=== PATIENT | female | born 1990 | race Caucasian/White ===

== ENCOUNTER → 2017-08-28 12:12 | Outpatient (CLI) | payer MEDICARE, MEDICAID, SELFPAY ==
[2017-08-28 12:17] LABS: Adenovirus F 40/41, stool Not Detected (NotDetected); Astrovirus Not Detected (NotDetected); Campylobacter Not Detected (NotDetected); Clostridium Difficile A/B, PCR Not Detected (NotDetected); Cryptosporidium Not Detected (NotDetected); Cyclospora Cayetanesis Not Detected (NotDetected); Entamoeba histolytica Not Detected (NotDetected); Enteroaggregative E coli Not Detected (NotDetected); Enteropathogenic E coli Not Detected (NotDetected); Enterotoxigenic E coli Not Detected (NotDetected); Giardia lamblia Not Detected (NotDetected); Norovirus Not Detected (NotDetected); Plesimonas Shigalloides, PCR Not Detected (NotDetected); Rotavirus A Not Detected (NotDetected); Salmonella, PCR Not Detected (NotDetected); Sapovirus Not Detected (NotDetected); Shiga-like toxin E coli Not Detected (NotDetected); Shigella Enterovasive E coli Not Detected (NotDetected); Vibrio Cholerae Not Detected (NotDetected); Vibrio, PCR Not Detected (NotDetected); Yersinia Entercolitica, PCR Not Detected (NotDetected)
== END ==
PROVIDERS: Visit Provider Emergency Medicine
DX: R11.2 Nausea with vomiting, unspecified (principal)
CPT/HCPCS: 87507

== ENCOUNTER → 2019-10-31 08:22 | Outpatient (CLI) | payer MEDICARE, MEDICAID, SELFPAY ==
[2019-10-31 08:59] LABS: Basophils # 0.1 K/mm3 (0-0.2); Basophils % 0.7 % (0.1-2.0); Eosinophils # 0.3 K/mm3 (0.0-0.4); Eosinophils % 2.5 % (0.1-12.0); Hematocrit 41.3 % (37.0-47.0); Hemoglobin 14.4 g/dL (12.2-16.2); Lymphocytes % 28.4 % (10-50); Mean Corpuscular HGB Conc 34.8 g/dL (31.8-35.4); Mean Corpuscular Hemoglobin 29.4 pg (27.0-31.2); Mean Corpuscular Volume 84.4 fl (81-99); Mean Platelet Volume 6.5 fl (7.4-10.4); Monocytes # 0.5 K/mm3 (0.1-1.0); Neutrophils # 6.8 K/mm3 (1.8-7.8); Neutrophils % 63.4 % (37.0-80.0); Platelet Count 452 K/mm3 (142-424); Red Cell Distribution Width 13.5 % (11.5-17.5); White Blood Count 10.7 K/mm3 (4.8-10.8)
[2019-10-31 10:09] LABS: Alanine Aminotransferase 20 U/L (12-78); Albumin Level 4.1 g/dl (3.5-5.0); Albumin/Globulin Ratio 1.2 (1.1-1.8); Alkaline Phosphatase 108 U/L (38-126); Anion Gap 10.2 mEq/L (5-15); Aspartate Amino Transferase 18 U/L (14-36); Bilirubin,Total 0.6 mg/dl (0.2-1.3); Blood Urea Nitrogen 13 mg/dl (7-17); Calcium 9.4 mg/dl (8.4-10.2); Carbon Dioxide 27 mmol/L (22.0-30.0); Chloride 103 mmol/L (98-107); Chol/HDL Ratio 3.4 (1-3.5); Cholesterol 158 mg/dl (140-200); Estimated Glomerular Filt Rate 100 ml/min (>60); GFR (African American) 121 ML/MIN (>60); Globulin 3.4 g/dL (1.3-3.2); Glucose 96 mg/dl (74-100); HDL Cholesterol 46 mg/dl (40-60); Potassium 4.2 mmoL/L (3.5-5.1); Sodium 136 mmol/L (136-145); Total Protein,Serum 7.5 g/dl (6.3-8.2); Triglycerides 136 mg/dl (30-150); VLDL Cholesterol 27 mg/dL (0-40)
[2019-10-31 10:20] LABS: Direct LDL Cholesterol 102.57 mg/dL (100-129)
== END ==
PROVIDERS: Visit Provider Physician Assistant
DX: R11.0 Nausea (principal); E78.2 Mixed hyperlipidemia
CPT/HCPCS: 36415; 80053; 80061; 85025

== ENCOUNTER → 2020-10-13 15:39 | Outpatient (CLI) | payer MEDICARE, OTHER, SELFPAY ==
--- NOTE | 2020-10-13 15:48 | XR_ITS ---
PROCEDURE: XR ABDOMEN MIN 2V CLINICAL INDICATION: NAUSEA AND VOMITING COMPARISON: No exams were available for comparison FINDINGS: Status post cholecystectomy. Mild levo curvature of the lumbar spine. The bowel gas pattern is nonspecific. There is a surgical clip in the right lower quadrant. No intestinal obstruction or free air. No abnormal calcifications. IMPRESSION: No acute findings. Dictated by: Fermín Benjamin MD 10/13/2020 16:38 Fermín Benjamin MD in [facility] 10/13/2020 16:38
== END ==
PROVIDERS: PCP Family Medicine; Visit Provider Family Medicine
DX: R11.2 Nausea with vomiting, unspecified (principal)
CPT/HCPCS: 74019

== ENCOUNTER → 2020-10-16 08:49 | Outpatient (CLI) | payer MEDICARE, OTHER, SELFPAY ==
--- NOTE | 2020-10-16 08:56 | FL_ITS ---
PROCEDURE: FL UPPER GI SMALL BOWEL CLINICAL INDICATION: NAUSEA AND VOMITING, INTRACTABILITY OF VOMITING NOT SPECIFIE COMPARISON: No exams were available for comparison TECHNIQUE: FLUOROSCOPY TIME : 2 minutes and 39 seconds FINDINGS: The esophagus, stomach, and duodenum have an unremarkable appearance.There is no evidence of hiatal hernia. No ulcer or mass evident. No mucosal abnormalities apparent. There is normal peristalsis. The duodenal C-loop is nondisplaced. The small bowel has an unremarkable appearance. No obstructing lesions, mucosal abnormalities, or masses are evident. Spot views of the terminal ileum are unremarkable. IMPRESSION: Unremarkable upper GI with small-bowel follow-through Dictated by: Fermín Benjamin MD 10/16/2020 11:21 Fermín Benjamin MD in [facility] 10/16/2020 11:21
== END ==
PROVIDERS: PCP Family Medicine; Visit Provider Family Medicine
DX: R11.2 Nausea with vomiting, unspecified (principal)
CPT/HCPCS: 74246; 74248

== ENCOUNTER → 2021-01-03 11:48 | Outpatient (CLI) | payer MEDICARE, OTHER, SELFPAY | PROVIDERS: PCP Family Medicine; Visit Provider Family Medicine | DX: Z20.822 Contact with and (suspected) exposure to COVID-19 (principal) | CPT/HCPCS: U0003 ==

== ENCOUNTER 2021-01-05 20:29 | Emergency (ER) | payer MEDICARE, OTHER, SELFPAY ==
--- NOTE | 2021-01-05 21:39 | PC.NURSE ---
patient attempted to provide urine sample, mother states patient missed the hat
[2021-01-05 21:41] VITALS: BP 118/79; PULSE 86; RESP 15; TEMP 36.8; O2SAT 97; BMI 40.1
--- NOTE | 2021-01-05 22:30 | CT_ITS ---
PROCEDURE INFORMATION: Exam: CT Abdomen And Pelvis With Contrast Exam date and time: 01/05/2021 10:30 PM Age: 30 years old Clinical indication: Vomiting; Prior surgery; Surgery type: Gallbladder; Patient HX: N/v, unable to keep anything down, weight loss; Additional info: Abd pain TECHNIQUE: Imaging protocol: Computed tomography of the abdomen and pelvis with contrast. Radiation optimization: All CT scans at this facility use at least one of these dose optimization techniques: automated exposure control; mA and/or kV adjustment per patient size (includes targeted exams where dose is matched to clinical indication); or iterative reconstruction. Contrast material: ISOVUE; Contrast volume: 75 ml; Contrast route: IV; COMPARISON: ABDPELW CT abdomen pelvis w con 08/27/2017 2:21 PM FINDINGS: Lungs: There a few punctate pulmonary parenchymal calcifications, consistent with remote granulomatous organism exposure. Pleural spaces: There are no pleural effusions. Heart: There is no evidence of pericardial fluid collections. Liver: There is diffuse decrease in hepatic parenchymal density consistent with fatty infiltration. There is a small region of focal fatty infiltration adjacent to the falciform ligament. Gallbladder and bile ducts: There has been a cholecystectomy. Pancreas: Normal. No ductal dilation. Spleen: There is mild nonspecific splenomegaly. Adrenal glands: The adrenal glands are normal. Kidneys and ureters: The kidneys are normal. Stomach and bowel: The stomach is normal. The duodenum is unremarkable. Unopacified loops of small bowel within range of normal. Lack of gastrointestinal contrast limits evaluation of bowel. Evaluation of the colon is limited due to motion artifact. As seen, no gross abnormalities. Appendix: No evidence of appendicitis. Intraperitoneal space: No evidence of intraperitoneal free air. No significant free fluid. Vasculature: There is no evidence of an abdominal aortic aneurysm. Lymph nodes: Calcified lymph nodes in the left hilar region indicate prior granulomatous disease. Previously described lymph nodes in the central mesentery and right mid to lower abdomen are less prominent. Urinary bladder: The bladder is decompressed. Reproductive: The uterus is normal. The right ovary is normal. The left ovary is normal. Bones/joints: There is no evidence of acute fracture. There are mild degenerative changes of the sacroiliac joints. The thoracolumbar spine demonstrates mild degenerative changes at multiple levels. Soft tissues: Unremarkable. Other findings: Motion artifact does moderately limit the sensitivity of this examination. IMPRESSION: 1. Mild splenomegaly. 2. Fatty hepatic infiltration.
[2021-01-05 22:52] LABS: Chloride 103 mmol/L (98-107)
[2021-01-05 22:53] LABS: Basophils # 0.1 K/mm3 (0-0.2); Basophils % 0.4 % (0.1-2.0); Eosinophils # 0.2 K/mm3 (0.0-0.4); Eosinophils % 1.4 % (0.1-12.0); Hematocrit 42.2 % (37.0-47.0); Hemoglobin 13.9 g/dL (12.2-16.2); Lymphocytes % 15.9 % (10-50); Mean Corpuscular Hemoglobin 26.9 pg (27.0-31.2); Mean Corpuscular Volume 81.5 fl (81-99); Mean Platelet Volume 6.9 fl (7.4-10.4); Monocytes # 0.6 K/mm3 (0.1-1.0); Monocytes % 4.6 % (1.7-9.3); Neutrophils # 9.6 K/mm3 (1.8-7.8); Neutrophils % 77.6 % (37.0-80.0); Platelet Count 381 K/mm3 (142-424); Potassium 3.6 mmoL/L (3.5-5.1); Red Blood Count 5.18 M/mm3 (4.20-5.40); Sodium 140 mmol/L (136-145); White Blood Count 12.4 K/mm3 (4.8-10.8)
[2021-01-05 22:55] LABS: Alanine Aminotransferase 42 U/L (12-78); Amylase 48 U/L (30-110); Anion Gap 9.6 mEq/L (5-15); Aspartate Amino Transferase 35 U/L (14-36); Blood Urea Nitrogen 6 mg/dl (7-17); Carbon Dioxide 31 mmol/L (22.0-30.0); Creatinine Clearance Estimated 239 mL/min (50-200); Estimated Glomerular Filt Rate 118 ml/min (>60); GFR (African American) 143 ML/MIN (>60)
[2021-01-05 22:56] LABS: Albumin Level 4.2 g/dl (3.5-5.0); Albumin/Globulin Ratio 1.1 (1.1-1.8); Alkaline Phosphatase 110 U/L (38-126); Bilirubin,Total 0.4 mg/dl (0.2-1.3); Calcium 9.3 mg/dl (8.4-10.2); Globulin 3.8 g/dL (1.3-3.2); Glucose 99 mg/dl (74-100); Lipase 70 U/L (23-300)
[2021-01-05 23:01] LABS: C-Reactive Protein 49.5 mg/L (0-4); HCG Qualitative, Serum Negative (Negative)
[2021-01-05 23:03] VITALS: BP 95/62; PULSE 81; O2SAT 96
--- NOTE | 2021-01-05 23:10 | HMH.EDNVD ---
ED Disposition Clinical Impression: Abdominal pain Qualifiers: Abdominal location: epigastric Qualified Code(s): R10.13 - Epigastric pain Disposition: Home, Self-Care Condition on Discharge: Good Instructions: DI for Acute Abdominal Pain Additional Instructions: call pcp in am Referrals: Eduardo Borja MD [Primary Care Provider] - - Critical Care Critical Care Time: No Attestation: On 01/05/21, the high probability of a clinically significant, sudden or life threatening deterioration of the following system(s) required my full and direct attention, intervention and personal management. The time I documented below is in addition to time spent performing reported procedures but includes the following listed in this critical care notation. Medical Decision Making - Medical Records Medical records reviewed: Yes: I reviewed the patient's medical records. - Michael Inquiry Pt receiving controlled substance: No Vital Signs: 01/05/21 21:41 01/05/21 23:03 01/05/21 23:30 Temperature 98.3 F Temperature Source Oral Pulse Rate 81 93 H Pulse Rate [Right Brachial] 86 Respiratory Rate 15 Blood Pressure 95/62 L 99/66 L Blood Pressure [Right Arm] 118/79 Blood Pressure Mean [Right Arm] 92 Blood Pressure Source [Right Arm] Automatic Cuff 02 Sat by Pulse Oximetry 97 96 98 Oxygen Delivery Method Room Air - Lab Data Lab results reviewed: Yes: I reviewed the patient's lab results. Lab Results 01/05/21 22:30: WBC 12.4 H, RBC 5.18, Hgb 13.9, Hct 42.2, MCV 81.5, MCH 26.9 L, MCHC 33.0, RDW 14.0, Plt Count 381, MPV 6.9 L, Neut % (Auto) 77.6, Lymph % (Auto) 15.9, [place] % (Auto) 4.6, Eos % (Auto) 1.4, Baso % (Auto) 0.4, Neut # (Auto) 9.6 H, Lymph # (Auto) 2.0, [place] # (Auto) 0.6, Eos # (Auto) 0.2, Baso # (Auto) 0.1 01/05/21 22:30: Sodium 140, Potassium 3.6, Chloride 103, Carbon Dioxide 31 H, Anion Gap 9.6, BUN 6 L, Creatinine 0.60, Estimated Creat Clear 239, Estimated GFR 118, Est GFR ( Amer) 143, Glucose 99, Calcium 9.3, Total Bilirubin 0.4, AST 35, ALT 42, Alkaline Phosphatase 110, C-Reactive Protein 49.5 H, Total Protein 8.0, Albumin 4.2, Globulin 3.8 H, Albumin/Globulin Ratio 1.1, Amylase 48, Lipase 70 01/05/21 22:30: Serum HCG, Qual Negative 01/05/21 22:30: ESR 25 H 01/05/21 22:30: Procalcitonin 0.051 Result diagrams: 01/05/21 22:30 01/05/21 22:30 Orders (Tests/Meds): ED MEDICATIONS Generic Name Dose Route Start Last Admin Trade Name Freq PRN Reason Stop Dose Admin Sodium Chloride 1,000 mls @ 999 mls/hr 01/05/21 22:30 01/05/21 23:23 Sod Chlor 0.9% 1000ml Bag IV 01/05/21 23:30 999 mls/hr .Q1H1M TOSHIA Administration Sodium Chloride 8 ml 01/05/21 22:30 Sodium Chloride 0.9% 10ml Vial IV 02/04/21 22:29 NEEDED PRN dilute pepcid Discontinued Medications Generic Name Dose Route Start Last Admin Trade Name Freq PRN Reason Stop Dose Admin Famotidine 20 mg 01/05/21 22:30 01/05/21 23:23 Famotidine 20mg/2ml Vial IV 01/05/21 22:31 20 mg ONCE ONE Administration Iopamidol 75 ml 01/06/21 00:19 01/06/21 00:20 Iopamidol-370 (76%);100ml Bottle IV 01/06/21 00:20 75 ml ONCE ONE Administration Ketorolac Tromethamine 30 mg 01/05/21 22:30 01/05/21 23:22 Ketorolac 30mg/Ml Vial IV 01/05/21 22:31 30 mg ONCE ONE Administration Metoclopramide HCl 10 mg 01/05/21 22:30 01/05/21 23:23 Metoclopramide Hcl 10mg/2ml Vial IVP 01/05/21 22:31 10 mg ONCE ONE Administration Ondansetron HCl 4 mg 01/05/21 22:30 01/05/21 23:23 Ondansetron 4mg/2ml Vial IV 01/05/21 22:31 4 mg ONCE ONE Administration Sodium Chloride 10 ml 01/06/21 00:19 01/06/21 00:19 Sodium Chloride 0.9% 10ml Syr (Rad Only) IV 01/06/21 00:20 10 ml ONCE ONE Administration ORDERS Category Date Time Status Urinalysis and Microscopic Stat Lab 01/05/21 21:49 Ordered - CT Data CT Scan: Abdomen, Pelvis Time Received: 01:[address] Reviewed: Yes: I hav
[2021-01-05 23:13] LABS: Procalcitonin 0.051 ng/mL (0.0-2.0)
[2021-01-05 23:21] LABS: Erythrocyte Sedimentation Rate 25 mm/hr (0-20)
[2021-01-05 23:30] VITALS: BP 99/66; PULSE 93; O2SAT 98
[2021-01-06 01:50] VITALS: BP 118/80; PULSE 76; RESP 18; TEMP 37; O2SAT 98
== END 2021-01-06 01:51 | disposition home or self-care (01) ==
PROVIDERS: Emergency Provider Emergency Medicine; PCP Family Medicine
DX: R10.13 Epigastric pain (principal); R11.10 Vomiting, unspecified; F84.0 Autistic disorder
CPT/HCPCS: 74177; 80053; 82150; 83690; 84145; 84703; 85025; 85651; 86140; 96365; 96375; 99283; J2405; Q9967

== ENCOUNTER → 2021-01-06 18:08 | Outpatient (CLI) | payer MEDICARE, OTHER, SELFPAY ==
[2021-01-06 18:14] LABS: Adenovirus F 40/41, stool Not Detected (NotDetected); Astrovirus Not Detected (NotDetected); Campylobacter Not Detected (NotDetected); Clostridium Difficile A/B, PCR Not Detected (NotDetected); Cryptosporidium Not Detected (NotDetected); Cyclospora Cayetanesis Not Detected (NotDetected); Entamoeba histolytica Not Detected (NotDetected); Enteroaggregative E coli Not Detected (NotDetected); Enteropathogenic E coli Not Detected (NotDetected); Enterotoxigenic E coli Not Detected (NotDetected); Giardia lamblia Not Detected (NotDetected); Norovirus Not Detected (NotDetected); Plesimonas Shigalloides, PCR Not Detected (NotDetected); Rotavirus A Not Detected (NotDetected); Salmonella, PCR Not Detected (NotDetected); Sapovirus Not Detected (NotDetected); Shiga-like toxin E coli Not Detected (NotDetected); Shigella Enterovasive E coli Not Detected (NotDetected); Vibrio Cholerae Not Detected (NotDetected); Vibrio, PCR Not Detected (NotDetected); Yersinia Entercolitica, PCR Not Detected (NotDetected)
== END ==
PROVIDERS: Visit Provider Nurse Practitioner
DX: R19.7 Diarrhea, unspecified (principal)
CPT/HCPCS: 87506

== ENCOUNTER 2024-05-29 12:58 | Emergency (ER) | payer MEDICARE, OTHER, SELFPAY ==
[2024-05-29 14:10] VITALS: PULSE 90; RESP 21; TEMP 37.1; O2SAT 99; BMI 28.1
--- NOTE | 2024-05-29 14:39 | EXP.UTC ---
Discharge Plan Disposition Patient Disposition: Home, Self-Care Condition: Good Prescriptions Prescriptions: New promethazine 12.5 mg tablet 12.5 mg PO TID PRN (Reason: nausea and vomiting) Qty: 6 0RF amoxicillin 500 mg capsule 500 mg PO BID 10 Days Qty: 20 0RF No Action quetiapine 25 mg tablet 25 mg PO DAILY omeprazole 40 mg capsule,delayed release(DR/EC) 40 mg PO DAILY famotidine 20 mg tablet 20 mg PO DAILY diazepam 2 mg tablet 2 mg PO DAILY metoprolol succinate 25 mg tablet extended release 24 hr 25 mg PO DAILY escitalopram oxalate 5 mg tablet 5 mg PO DAILY Referrals Follow up/Referrals: Eduardo Borja MD [Primary Care Provider] - See instructions Activity Restrictions/Add. Instructions Additional Instructions/Restrictions: Make sure she is drinking plenty fluids like gatoraid, water with added electrolytes Take medication as prescribed Follow up with your Family Doctor if no improvement Use zofran and if it isnt working may try the Phenergan Straight to ER if any life threatening symtpoms Clinical Impressions Clinical Impression: Strep throat, Vomiting Instructions Patient Instructions: DI for Strep Throat, DI for Vomiting -- Adult Print Language Print Language: Bangladeshi Discharge ED Provider: Alicia Anders [facility] General Stated complaint: vomiting Mode of Arrival: Ambulatory Source of Information: Patient and Parent(s) Limitations: No Limitations Time Seen by Provider: 05/29/24 14:39 Description of Symptoms (Recalled from Triage Doc. by RN): PATIENT C/O VOMITING THAT STARTED LAST TUESDAY. SHE WAS SEEN BY HER PCP AND GIVEN GAS-X AND A NAUSEA PILL, BUT STATES IT IS NOT HELPING HEENT Symptoms (Recalled from RN notes): No Resp Symptoms (Recalled from RN notes): No Skin Symptoms (Recalled from RN notes): No MS Symptoms (Recalled from RN notes): No Functional Status (Recalled from RN notes): WNL History of Present Illness Provider Complaint: Mother states that she has been vomiting on and off since last Tuesday States that she seen her PCP and she give her Zofran but it doesnt work well for her Phenergan does better and saying that her throat is sore States that she was worried she may have strep throat States that she is still drinking plenty of fluids Related Data Home Medications ?Medication ?Instructions ?Recorded ?Confirmed diazepam 2 mg tablet 2 mg PO DAILY 05/29/24 05/29/24 escitalopram oxalate 5 mg tablet 5 mg PO DAILY 05/29/24 05/29/24 famotidine 20 mg tablet 20 mg PO DAILY 05/29/24 05/29/24 metoprolol succinate 25 mg 25 mg PO DAILY 05/29/24 05/29/24 tablet,extended release 24 hr omeprazole 40 mg capsule,delayed 40 mg PO DAILY 05/29/24 05/29/24 release quetiapine 25 mg tablet 25 mg PO DAILY 05/29/24 05/29/24 Previous Rx's ?Medication ?Instructions ?Recorded amoxicillin 500 mg capsule 500 mg PO BID 10 days #20 caps 05/29/24 promethazine 12.5 mg tablet 12.5 mg PO TID PRN nausea and 05/29/24 vomiting #6 tabs Allergies Allergy/AdvReac Type Severity Reaction Status Date / Time No Known Allergies Allergy Verified 01/05/21 21:50 Worker's Comp Is this a Worker's Comp case?: No [facility] Disclaimer: The information contained in this section may have been updated after the patient was seen, as this information can be updated by other users. Medical History (Updated 05/29/24 @ 15:00 by Alicia Anders APRN) Depression Anxiety Hyperlipidemia Surgical History (Updated 05/29/24 @ 14:19 by Beena Acharya RN) History of cholecystectomy Social History Smoking Status: Never smoker alcohol intake: never substance use type: denies use current occupational status: disabled Travel in the last 8 weeks: None housing: house Have you lived/traveled outside [place] in past 30 days?: No Contact w/someone who lives/traveled outside US past 30 days?: No Exposure to someone with infectious disease in past 14 days?: No Do you have a fever (greater than 100.4 F or 38 C)?: No Have you tested positive for COVID-19: No Exposed to someone with COVID-19 in past 14 days?: No Do you have a sore throat?: No Do you have a cough?: No Do you have any weakness?: No Do you have any diarrhea?: No Are you experiencing any unusual bleeding?: No Do you have any muscle aches/pain?: No Do you have any abdominal pain?: No Are you experiencing loss of taste or smell?: No ROS Obtained: Yes All systems reviewed & no additional complaints except as documented and Yes Systems reviewed as appropriate & no additional complaints except as documented Constitutional Constitutional: Reports system reviewed and no additional complaints, except as documented and Reports as per HPI ENT Ears, Nose, Mouth, and Throat: Reports system reviewed and no additional complaints, except as documented, Reports as per HPI and Reports sore throat Cardiovascular Cardiovascular: Reports system reviewed and no additional complaints, except as documented and Reports as per HPI Respiratory Respiratory: Reports system reviewed and no additional complaints, except as documented and Reports as per HPI Gastrointestinal Gastrointestingal: Reports system reviewed and no additional complaints, except as documented, as per HPI, nausea and vomiting (on and off x 1 week) Genitourinary Female Genitourinary: Reports system reviewed and no additional complaints, except as documented and Reports as per HPI Physical Exam General General appearance: alert and in no apparent distress ENT ENT exam: Present mucous membranes moist Expanded ENT Exam Nose exam: Absent sinus tenderness Throat exam: Present tonsillar erythema Respiratory Respiratory exam: Present normal lung sounds bilaterally; Absent respiratory distress or wheezes Cardiovascular Cardiovascular exam: Present regular rate, normal rhythm and normal heart sounds Abdominal Exam Abdominal exam: Present soft and normal bowel sounds; Absent distention, tenderness or guarding Neurological Exam Neurological exam: Present alert, oriented X3 and normal gait Medical Decision Making Medical Records Screening: Per USPSTF and CDC recommendations, given the prevalence of disease in our region, it is our hospital?s policy to screen for HIV and viral Hepatitis for all patients aged 18 and over and those with ongoing risk factors. Michael Inquiry Pt receiving controlled substance: No Michael was queried for this patient: No Vital Signs: 05/29/24 14:10 Temperature 98.8 F Temperature Source Oral Pulse Rate [Left] 90 Respiratory Rate 21 02 Sat by Pulse Oximetry 99 Oxygen Delivery Method Room Air Lab Data Lab results reviewed: Yes I reviewed the patient's lab results. Medical Decision Narrative: Mother requesting phenergan states zofran does not work well for her, patient no distress up walking around room talking with mother medicaiton discussed with pharmacy will give a small amount of phenergan to use if zofran isnt working
[2024-05-29 14:54] LABS: UTC Strep Screen (Rapid) Positive (Negative)
[2024-05-29 15:03] VITALS: BP 0/0; PULSE 90; RESP 21; TEMP 37.1; O2SAT 99
== END 2024-05-29 15:05 | disposition home or self-care (01) ==
PROVIDERS: Emergency Provider Nurse Practitioner; PCP Family Medicine
DX: J02.0 Streptococcal pharyngitis (principal); R11.10 Vomiting, unspecified; R11.0 Nausea
CPT/HCPCS: 87880; 99212; G0381

== ENCOUNTER 2024-06-10 16:56 | Emergency (ER) | payer MEDICARE, OTHER, SELFPAY ==
[2024-06-10 16:58] VITALS: BP 140/90; PULSE 97; RESP 20; TEMP 36.4; O2SAT 99; BMI 42.9
--- NOTE | 2024-06-10 17:11 | CT_ITS ---
PROCEDURE INFORMATION: Exam: CT Abdomen And Pelvis With Contrast Exam date and time: 06/10/2024 5:45 PM Age: 34 years old Clinical indication: Nausea and vomiting; Additional info: Abd pain, nausea/vom x 2 weeks TECHNIQUE: Imaging protocol: Computed tomography of the abdomen and pelvis with contrast. Radiation optimization: All CT scans at this facility use at least one of these dose optimization techniques: automated exposure control; mA and/or kV adjustment per patient size (includes targeted exams where dose is matched to clinical indication); or iterative reconstruction. Contrast material: ISOVUE; Contrast volume: 75 ml; Contrast route: IV; COMPARISON: CT ABDOMEN PELVIS W CON 01/05/2021 11:58 PM FINDINGS: Liver: Diffuse decrease in hepatic parenchymal density, consistent with fatty infiltration. Focal fatty infiltration at the level of the falciform ligament. Liver is enlarged measuring 18 cm. Gallbladder and biliary ducts: Cholecystectomy. Pancreas: Normal. No ductal dilation. Spleen: Normal. No splenomegaly. Adrenal glands: Normal. No mass. Kidneys and ureters: Normal. No hydronephrosis. Stomach and bowel: There is submucosal fat deposition noted throughout the colon, a finding which has been previously described as the sequela of prior infectious/inflammatory process or increased body fat content. There is no evidence of intestinal obstruction. Appendix: No evidence of appendicitis. Intraperitoneal space: Unremarkable. No free air. No significant fluid collection. Vasculature: Unremarkable. No abdominal aortic aneurysm. Lymph nodes: Slightly prominent right lower quadrant mesenteric lymph nodes measuring up to 9 mm. Urinary bladder: Unremarkable as visualized. Reproductive: Unremarkable as visualized. Bones/joints: Unremarkable. No acute fracture. Soft tissues: Unremarkable. IMPRESSION: Slightly prominent right lower quadrant mesenteric lymph nodes measuring up to 9 mm. Nonspecific, however could be seen with mild mesenteric adenitis.
[2024-06-10 17:21] LABS: Basophils # 0.1 K/mm3 (0-0.2); Basophils % 0.5 % (0.1-2.0); Eosinophils # 0.1 K/mm3 (0.0-0.4); Eosinophils % 1.3 % (0.1-12.0); Hemoglobin 13.8 g/dL (12.2-16.2); Lymphocytes # 2.2 K/mm3 (0.7-4.5); Lymphocytes % 23.1 % (10-50); Mean Corpuscular HGB Conc 33.7 g/dL (31.8-35.4); Mean Corpuscular Volume 80.1 fl (81-99); Mean Platelet Volume 9.1 fl (7.4-10.4); Monocytes # 0.8 K/mm3 (0.1-1.0); Monocytes % 7.9 % (1.7-9.3); Neutrophils # 6.4 K/mm3 (1.8-7.8); Platelet Count 315 K/mm3 (142-424); Red Blood Count 5.12 M/mm3 (4.20-5.40); Red Cell Distribution Width 13.2 % (11.5-17.5); White Blood Count 9.5 K/mm3 (4.8-10.8)
[2024-06-10] MEDS: PROMETHAZINE HCL 25MG/ML 1ML VIAL 25 MG IV (17:21)
[2024-06-10] MEDS: LACTATED RINGERS 1000ML 1,000 ML 999 ML IV (17:21)
[2024-06-10] MEDS: SODIUM CHLORIDE 0.9% 25ML BAG 25 ML IV (17:21)
[2024-06-10 17:29] LABS: Coronavirus 19, PCR Not Detected (NotDetected); Influenza A, PCR Not Detected (NotDetected); Influenza B, PCR Not Detected (NotDetected)
[2024-06-10 17:31] VITALS: BP 132/110; PULSE 77; O2SAT 99
[2024-06-10 17:31] LABS: Albumin Level 4.4 g/dl (3.5-5.0); Chloride 101 mmol/L (98-107); Potassium 4.2 mmoL/L (3.5-5.1); Sodium 134 mmol/L (136-145)
[2024-06-10 17:34] LABS: Alanine Aminotransferase 56 U/L (12-78); Albumin/Globulin Ratio 1.3 (1.1-1.8); Alkaline Phosphatase 95 U/L (38-126); Anion Gap 11.2 mEq/L (5-15); Aspartate Amino Transferase 43 U/L (14-36); Bilirubin,Total 0.3 mg/dl (0.2-1.3); Blood Urea Nitrogen 11 mg/dl (7-17); Carbon Dioxide 26 mmol/L (22.0-30.0); Creatinine Clearance Estimated 99 mL/min (50-200); Estimated Glomerular Filt Rate 96 ml/min (>60); GFR (African American) 117 ML/MIN (>60); Globulin 3.3 g/dL (1.3-3.2); Glucose 98 mg/dl (74-100); Lipase 60 U/L (23-300); Total Protein,Serum 7.7 g/dl (6.3-8.2)
[2024-06-10 17:35] LABS: HCG Qualitative, Serum Negative (Negative)
--- NOTE | 2024-06-10 17:36 | XR_ITS ---
PROCEDURE INFORMATION: Exam: XR Chest Exam date and time: 06/10/2024 5:44 PM Age: 34 years old Clinical indication: Other: General illness; Additional info: Intractable vomiting, general illness TECHNIQUE: Imaging protocol: Radiologic exam of the chest. Views: 2 views. COMPARISON: CT ABDOMEN PELVIS W CON 01/05/2021 11:58 PM FINDINGS: Lungs: Unremarkable. No consolidation. Pleural spaces: Unremarkable. No pleural effusion. No pneumothorax. Heart/Mediastinum: Unremarkable. No cardiomegaly. Bones/joints: Unremarkable. Organs: Surgical clips are present in the right upper quadrant, consistent with previous cholecystectomy. IMPRESSION: No acute findings.
[2024-06-10 17:47] LABS: Strep Scrn Group A (Rapid) Negative (Negative)
[2024-06-10] MEDS: SODIUM CHLORIDE 0.9% 10ML SYR (RAD ONLY) 10 ML IV (17:47)
[2024-06-10] MEDS: IOPAMIDOL-370 (76%);100ML BOTTLE 75 ML IV (17:47)
[2024-06-10 18:01] VITALS: BP 164/116; PULSE 100; O2SAT 96
[2024-06-10 18:17] LABS: Appearance,Urine CLEAR (Clear); Bilirubin,Urine Negative (Negative); Blood, Urine 2+ (Negative); Color,Urine YELLOW (Yellow); Glucose,Urine (UA) Negative (Negative); Ketones,Urine Negative (Negative); Leukocyte Esterase,Urine Negative (Negative); Microscopic, Urine URINE MICROSCOPIC (MICROSCOPIC); Nitrate,Urine Negative (Negative); PH,Urine 6.5 (5.0-8.5); Protein,Urine Negative (Negative); Specific Gravity, Urine <= 1.005 (1.005-1.030); Urobilinogen,Urine 0.2 EU/dl (0.2)
--- NOTE | 2024-06-10 18:17 | ED_ITS ---
Discharge Plan Disposition Patient Disposition: Home, Self-Care Condition: Good Prescriptions Prescriptions: New promethazine 25 mg tablet 25 mg PO Q6H PRN (Reason: nausea and vomiting) Qty: 14 1RF famotidine [Pepcid] 20 mg tablet 20 mg PO DAILY Qty: 14 0RF nitrofurantoin monohyd/m-cryst [Macrobid] 100 mg capsule 100 mg PO BID 5 Days Qty: 10 0RF Rx Instructions: must administer with a meal/food No Action quetiapine 25 mg tablet 25 mg PO DAILY omeprazole 40 mg capsule,delayed release(DR/EC) 40 mg PO DAILY famotidine 20 mg tablet 20 mg PO DAILY diazepam 2 mg tablet 2 mg PO DAILY metoprolol succinate 25 mg tablet extended release 24 hr 25 mg PO DAILY escitalopram oxalate 5 mg tablet 5 mg PO DAILY promethazine 12.5 mg tablet 12.5 mg PO TID PRN (Reason: nausea and vomiting) Qty: 6 0RF amoxicillin 500 mg capsule 500 mg PO BID 10 Days Qty: 20 0RF Referrals Follow up/Referrals: Brandon Borja MD [Primary Care Provider] - See instructions Activity Restrictions/Add. Instructions Additional Instructions/Restrictions: You were evaluated in the emergency department today. At this time, CT scan demonstrates some enlarged lymph nodes that are concerning for mesenteric adenitis, which is basically reactive inflammation of lymph nodes in your abdomen. Your appendix currently looks normal. Your urine is concerning for possible infection, so we sent a culture which is pending. Otherwise, workup is very reassuring. Please follow-up very closely with your primary care provider. If you continue to have issues with vomiting, you may benefit from referral to general surgery versus gastroenterology for further evaluation. Return to the emergency department for new or worsening symptoms. Clinical Impressions Clinical Impression: Mesenteric adenitis, Vomiting, Urinary tract infection Instructions Patient Instructions: DI for Urinary Tract Infection (UTI), DI for Diarrhea and Traveler's Diarrhea -- Adult, DI for Nausea -- Adult, DI for Mesenteric Adenitis-Adult Print Language Print Language: Lao Discharge ED Provider: Tyra Golden General Adult HPI General Chief complaint: Nausea/Vomiting/Diarrhea Stated complaint: vomiting Time Seen by Provider: 06/10/24 17:01 Mode of Arrival: Ambulatory Source of Information: Patient and Parent(s) Limitations: austistic Description of Symptoms (Recalled from ER Triage Doc. by RN): pt had strep throat two weeks ago and was given antibiotics, pt mom states the vomiting and dry heaving have been going and sheen going to bathroom a lot, so pt mother is concerned for uti. pt mother gave her zofran and gas x today before coming History of Present Illness HPI narrative: This patient is a 34-year-old female with history of autism here with mother/guardian complainin of vomiting. Mom states that she has been having vomiting and diarrhea for about 2 weeks now. Patient is also complained of generalized abdominal pain. She was evaluated in [facility] 05/29/2024 and was complaining of sore throat at that time, and she did test positive for strep. She completed antibiotics for strep without significant issue but she is no better with regards to the vomiting. According to the patient's mother, she does have a history of having recurrent vomiting related to her menstrual cycles, but she is not currently on her period and this is much worse than usual. She has been given Phenergan and Gas-X at home without good improvement in the vomiting. No fevers, chills, cough, or urinary symptoms noted by the patient or her mother. Diarrhea and emesis are nonbloody. Related Data Home Medications ?Medication ?Instructions ?Recorded ?Confirmed diazepam 2 mg tablet 2 mg PO DAILY 05/29/24 05/29/24 escitalopram oxalate 5 mg tablet 5 mg PO DAILY 05/29/24 05/29/24 famotidine 20 mg tablet 20 mg PO DAILY 05/29/24 05/29/24 metoprolol succinate 25 mg 25 mg PO DAILY 05/29/24 05/29/24 tablet,extended release 24 hr omeprazole 40 mg capsule,delayed 40 mg PO DAILY 05/29/24 05/29/24 release quetiapine 25 mg tablet 25 mg PO DAILY 05/29/24 05/29/24 Previous Rx's ?Medication ?Instructions ?Recorded amoxicillin 500 mg capsule 500 mg PO BID 10 days #20 caps 05/29/24 promethazine 12.5 mg tablet 12.5 mg PO TID PRN nausea and 05/29/24 vomiting #6 tabs famotidine 20 mg tablet (Pepcid) 20 mg PO DAILY #14 tabs 06/10/24 nitrofurantoin 100 mg PO BID 5 days #10 caps 06/10/24 monohydrate/macrocrystals 100 mg capsule (Macrobid) promethazine 25 mg tablet 25 mg PO Q6H PRN nausea and 06/10/24 vomiting #14 tabs Allergies Allergy/AdvReac Type Severity Reaction Status Date / Time No Known Allergies Allergy Verified 01/05/21 21:50 [facility] Disclaimer: The information contained in this section may have been updated after the patient was seen, as this information can be updated by other users. Medical History Depression Anxiety Hyperlipidemia Surgical History History of cholecystectomy Social History Smoking Status: Never smoker alcohol intake: never substance use type: denies use current occupational status: disabled Travel in the last 8 weeks: None housing: house Have you lived/traveled outside US in past 30 days?: No Contact w/someone who lives/traveled outside US past 30 days?: No Exposure to someone with infectious disease in past 14 days?: No Do you have a fever (greater than 100.4 F or 38 C)?: No Have you tested positive for COVID-19: No Exposed to someone with COVID-19 in past 14 days?: No Do you have a sore throat?: No Do you have a cough?: No Do you have any weakness?: No Do you have any diarrhea?: No Are you experiencing any unusual bleeding?: No Do you have any muscle aches/pain?: No Do you have any abdominal pain?: Yes Are you experiencing loss of taste or smell?: No Other Medical History Have you received the Flu Vaccine for this season: Yes Have you received the Pneumonia Vaccine: No ROS Obtained: Yes All systems reviewed & no additional complaints except as documented Physical Exam General General appearance: alert and in no apparent distress Comment: Actively vomiting/retching. Nontoxic-appearing. Head Head exam: atraumatic and normocephalic Eye Eye exam: Present normal appearance, PERRL and EOMI ENT ENT exam: Present normal exam, normal oropharynx, mucous membranes moist and normal external ear exam Neck Neck exam: Present normal inspection, full ROM and trachea midline; Absent tenderness Chest Chest inspection: Present normal inspection and symmetric chest wall rise; Absent tenderness Respiratory Respiratory exam: Present normal lung sounds bilaterally; Absent respiratory distress, wheezes, stridor or accessory muscle use Cardiovascular Cardiovascular exam: Present regular rate and normal rhythm Abdominal Exam Abdominal exam: Present soft and tenderness (Generalized); Absent distention, guarding, rebound or rigidity Extremities Exam Extremities exam: Present normal inspection, full ROM and normal capillary refill; Absent tenderness or edema Back Exam Back exam: Present normal inspection and full ROM; Absent tenderness Neurological Exam Neurological exam: Present alert, CN II-XII intact, normal gait and other (At her neurologic baseline); Absent motor sensory deficit Psychiatric Psychiatric exam: Present normal affect and normal mood Skin Skin exam: Present warm and dry Medical Decision Making Medical Records Medical records reviewed: Yes I reviewed the patient's medical records. Screening: Per USPSTF and CDC recommendations, given the prevalence of disease in our region, it is our hospital?s policy to screen for HIV and viral Hepatitis for all patients aged 18 and over and those with ongoing risk factors. Michael Inquiry Pt receiving controlled substance: No Vital Signs: 06/10/24 16:58 06/10/24 17:31 06/10/24 18:01 Temperature 97.5 F L Temperature Source Oral Pulse Rate 77 100 H Pulse Rate [Left Radial] 97 H Respiratory Rate 20 Blood Pressure 132/110 H 164/116 H Blood Pressure [Right Arm] 140/90 Blood Pressure Mean [Right Arm] 106 02 Sat by Pulse Oximetry 99 99 96 Oxygen Delivery Method Room Air Room Air Room Air 06/10/24 18:31 06/10/24 19:50 Temperature 89 F L Temperature Source Pulse Rate 79 89 Pulse Rate [Left Radial] Respiratory Rate 18 Blood Pressure 143/91 H 130/89 Blood Pressure [Right Arm] Blood Pressure Mean [Right Arm] 02 Sat by Pulse Oximetry 100 Oxygen Delivery Method Room Air Room Air Lab Data Lab results reviewed: Yes I reviewed the patient's lab results. Lab Results 06/10/24 17:10: WBC 9.5, RBC 5.12, Hgb 13.8, Hct 41.0, MCV 80.1 L, MCH 27.0, MCHC 33.7, RDW 13.2, Plt Count 315, MPV 9.1, Neut % (Auto) 67.0, Lymph % (Auto) 23.1, [place] % (Auto) 7.9, Eos % (Auto) 1.3, Baso % (Auto) 0.5, Neut # (Auto) 6.4, Lymph # (Auto) 2.2, [place] # (Auto) 0.8, Eos # (Auto) 0.1, Baso # (Auto) 0.1, S odium 134 L, Potassium 4.2, Chloride 101, Carbon Dioxide 26, Anion Gap 11.2, BUN 11, Creatinine 0.70, Estimated Creat Clear 99, Estimated GFR 96, Est GFR ( Amer) 117, Glucose 98, Calcium 10.0, Total Bilirubin 0.3, AST 43 H, ALT 56, Alkaline Phosphatase 95, Total Protein 7.7, Albumin 4.4, Globulin 3.3 H, Albumin/Globulin Ratio 1.3, Lipase 60, Serum HCG, Qual Negative 06/10/24 17:20: SARS-CoV-2 (PCR) Not detected, Influenza A Untype (PCR) Not detected, Influenza Type B (PCR) Not detected, Group A Strep Rapid Negative 06/10/24 17:58: Urine Color Yellow, Urine Appearance Clear, Urine pH 6.5, Ur Specific [place] <= 1.005, Urine Protein Negative, Urine Glucose (UA) Negative, Urine Ketones Negative, Urine Blood 2+ A, Urine Nitrate Negative, Urine Bilirubin Negative, Urine Urobilinogen 0.2, Ur Leukocyte Esterase Negative, Urine RBC 5-10, Urine WBC 3-5, Ur Squamous Epith Cells 3-5, Urine Bacteria 1+ 06/10/24 17:10 06/10/24 17:10 Orders (Tests/Meds): ED MEDICATIONS Discontinued Medications Generic Name Dose Route Start Last Admin Trade Name Tomasq PRN Reason Stop Dose Admin Lactated Ringer's 1,000 mls @ 999 mls/hr 06/10/24 17:11 06/10/24 17:21 Lactated Ringer's 1000 Ml Bag IV 06/10/24 18:11 999 mls/hr .Q1H1M ONE Administration Iopamidol 75 ml 06/10/24 17:46 06/10/24 17:47 Iopamidol-370 (76%);100ml Bottle IV 06/10/24 17:47 75 ml ONCE ONE Administration Nitrofurantoin Macrocrystals 100 mg 06/10/24 19:09 06/10/24 19:19 Nitrofurantoin 100mg Capsule PO 06/10/24 19:10 100 mg ONCE ONE Administration Ondansetron HCl 4 mg 06/10/24 17:01 06/10/24 17:19 Ondansetron 4mg Odt SL 06/10/24 17:02 Not Given ONCE ONE Promethazine HCl 25 mg 06/10/24 17:03 06/10/24 17:21 Promethazine Hcl 25mg/Ml 1ml Vial IV 06/10/24 17:04 25 mg ONCE ONE Administration Sodium Chloride 25 ml 06/10/24 17:03 06/10/24 17:21 Sodium Chloride 0.9% 25ml Bag IV 06/10/24 17:04 25 ml ONCE ONE Administration Sodium Chloride 10 ml 06/10/24 17:46 06/10/24 17:47 Sodium Chloride 0.9% 10ml Syr (Rad Only) IV 06/10/24 17:47 10 ml ONCE ONE Administration ORDERS Category Date Time Status CT abdomen pelvis w con Stat Cat Scan 06/10/24 17:11 Completed CXR 2 view (NOT portable) [XR chest 2V] Stat Exams 06/10/24 17:36 Completed Complete Blood Count Auto Diff Stat Lab 06/10/24 17:10 Completed Comprehensive Metabolic Panel Stat Lab 06/10/24 17:10 Completed Lipase Stat Lab 06/10/24 17:10 Completed Rapid PCR Covid and Flu A/B Stat Lab 06/10/24 17:20 Completed Serum [HCG Qualitative, Serum] Stat Lab 06/10/24 17:10 Completed Strep Scrn Group A (Rapid) Stat Lab 06/10/24 17:20 Completed UA [Urinalysis and Microscopic] Stat Lab 06/10/24 17:58 Completed Strep Screen Confirmation Stat Micro 06/10/24 17:20 Received Medical Decision Narrative: In summary, this patient is a 34-year-old female presenting to the Emergency Department for evaluation of vomiting and abdominal pain. Differential diagnoses considered include but are not limited to gastroenteritis, colitis, peptic ulcer disease, pancreatitis, appendicitis, bowel obstruction, constipation. Ruling out the most morbid conditions drove assessment. I reviewed patient's past medical records and noted evaluation 05/29/2024 for similar symptoms and diagnosis of strep throat. On exam, the patient is actively retching/vomiting but is nontoxic-appearing with reassuring vital signs on cardiac telemetry. General exam demonstrates generalized tenderness with no rebound or guarding. Nothing localizable. Oropharyngeal exam and cardiopulmonary exam reassuring. She is at her neurologic baseline. Workup included CBC, CMP, lipase, test, urinalysis, CT abdomen and pelvis with IV contrast, and chest x-ray. I also ordered diarrhea panel but patient is no longer having diarrhea at this time and is not able to provide a specimen. She was given a bolus of fluids as well as IV Pepcid and Phenergan for symptomatic improvement, as mom states that Zofran typically does not work well for her. I independently interpreted CT scan and chest x-ray prior to the radiologist read and noted no obvious bowel obstruction, no obvious large focal consolidation concerning for pneumonia. Please see their read for final interpretation. Labs were obtained that demonstrated no significant leukocytosis. Chemistry is reassuring with only very mild hyponatremia and mild elevation in AST but no other acutely concerning abnormalities. Urine demonstrates 2+ blood with some white blood cells and bacteria. It is slightly contaminated with squamous cells, but given vomiting and acute illness will treat with Macrobid. Radiology noted that the CT scan is consistent with mesenteric adenitis. They noted her appendix is normal. On repeat assessment, abdominal exam is benign and the patient has no recurrence of vomiting. She was able to tolerate oral intake here in the emergency department after administration of Phenergan and is feeling better and states she wants to go home. Family is agreeable with this. She is given prescriptions for Phenergan, Pepcid, Macrobid and instructions for very close follow-up. Strict return precautions were also given. Patient was discharged after all questions were answered.. Critical Care Critical Care Time Critical Care Time: No
[2024-06-10 18:31] VITALS: BP 143/91; PULSE 79; O2SAT 100
[2024-06-10 18:41] LABS: Bacteria,Urine 1+ /lpf
--- NOTE | 2024-06-10 18:51 | PC.NURSE ---
DR BRAN AT BEDSIDE TO UPDATE PT AND FAMILY
[2024-06-10] MEDS: NITROFURANTOIN 100MG CAPSULE 100 MG PO (19:19)
[2024-06-10 19:50] VITALS: BP 130/89; PULSE 89; RESP 18; TEMP 31.6; O2SAT 100
== END 2024-06-10 19:51 | disposition home or self-care (01) ==
PROVIDERS: Emergency Provider Emergency Medicine; PCP Psychiatry & Neurology Sleep Medicine
DX: N39.0 Urinary tract infection, site not specified (principal); I88.0 Nonspecific mesenteric lymphadenitis; R11.10 Vomiting, unspecified; R35.0 Frequency of micturition; R19.7 Diarrhea, unspecified; R10.84 Generalized abdominal pain
CPT/HCPCS: 71046; 74177; 80053; 81001; 83690; 84703; 85025; 87430; 87636; 96361; 96374; 99285; J2550; J7120; Q9967

== ENCOUNTER 2024-07-19 10:31 | Outpatient (CLI) | payer MEDICARE, OTHER, SELFPAY ==
[2024-07-19 10:35] LABS: Adenovirus F 40/41, stool Not Detected (NotDetected); Astrovirus Not Detected (NotDetected); Campylobacter Not Detected (NotDetected); Clostridium Difficile A/B, PCR Not Detected (NotDetected); Cryptosporidium Not Detected (NotDetected); Cyclospora Cayetanesis Not Detected (NotDetected); Entamoeba histolytica Not Detected (NotDetected); Enteroaggregative E coli Not Detected (NotDetected); Enteropathogenic E coli Not Detected (NotDetected); Enterotoxigenic E coli Not Detected (NotDetected); Giardia lamblia Not Detected (NotDetected); Norovirus Not Detected (NotDetected); Plesimonas Shigalloides, PCR Not Detected (NotDetected); Rotavirus A Not Detected (NotDetected); Salmonella, PCR Not Detected (NotDetected); Sapovirus Not Detected (NotDetected); Shiga-like toxin E coli Not Detected (NotDetected); Shigella Enterovasive E coli Not Detected (NotDetected); Vibrio Cholerae Not Detected (NotDetected); Vibrio, PCR Not Detected (NotDetected); Yersinia Entercolitica, PCR Not Detected (NotDetected)
== END 2024-07-19 23:59 | disposition home or self-care (01) ==
LOC: LAB 10:32
PROVIDERS: PCP Nurse Practitioner Family; Visit Provider Nurse Practitioner Family
DX: R19.7 Diarrhea, unspecified (principal)
CPT/HCPCS: 87506

== ENCOUNTER 2024-09-12 08:06 | Day surgery (SDC) | payer MEDICARE, OTHER, SELFPAY ==
[2024-09-10 17:19] VITALS: BMI 35.8
[2024-09-12] VITALS (8 sets, daily range): BP systolic 120–134; BP diastolic 79–90; PULSE 66–95; RESP 14–18; TEMP 36.2–36.3; O2SAT 92–100
--- NOTE | 2024-09-12 09:18 | EXP.HP ---
History of Present Illness *Admission Date: 09/12/24 *Reason for visit:: Epigastric abdominal pain, nausea, vomiting and bloating *History of present illness: Mrs. James is a 34-year-old female who is here for diagnostic EGD because of her nausea, vomiting, epigastric abdominal pain and bloating. She does have autism. The examination is deemed medically necessary for diagnostic EGD. The patient has been seen, interviewed and examined prior to the procedure by both myself and the anesthesia provider. [facility] Disclaimer: The information contained in this section may have been updated after the patient was seen, as this information can be updated by other users. Medical History (Updated 09/12/24 @ 09:19 by Anna Nelson RN) Developmental disability Depression Anxiety Hyperlipidemia Surgical History Hx of umbilical hernia repair History of dental surgery History of cholecystectomy Family History (Updated 09/12/24 @ 09:10 by Anna Nelson RN) Other Heart disease Social History (Updated 09/12/24 @ 09:11 by Anna Nelson RN) Smoking Status: Never smoker alcohol intake: never substance use type: denies use current occupational status: disabled Travel in the last 8 weeks: None housing: house caffeine: Yes Have you lived/traveled outside US in past 30 days?: No Contact w/someone who lives/traveled outside US past 30 days?: No Exposure to someone with infectious disease in past 14 days?: No Do you have a fever (greater than 100.4 F or 38 C)?: No Have you tested positive for COVID-19: No Exposed to someone with COVID-19 in past 14 days?: No Do you have a sore throat?: No Do you have a cough?: No Do you have any weakness?: No Are you experiencing any nausea/vomitting?: No Do you have any diarrhea?: No Are you experiencing any unusual bleeding?: No Do you have any muscle aches/pain?: No Do you have any abdominal pain?: No Are you experiencing loss of taste or smell?: No Other Medical History Have you received the Flu Vaccine for this season: Yes Have you received the Pneumonia Vaccine: No Review of Systems Review of Systems Review of systems (narrative): Negative *Cardiovascular Comments: Negative *Gastrointestinal Comments: Negative *Genitourinary Comments: Negative *Musculoskeletal Comments: Negative *Neurologic Comments: Negative Meds Home Medications and Allergies Home Medications ?Medication ?Instructions ?Recorded ?Confirmed ?Type escitalopram oxalate 5 mg tablet 5 mg PO DAILY 05/29/24 09/12/24 History (Lexapro) metoprolol succinate 25 mg 25 mg PO DAILY 05/29/24 09/12/24 History tablet,extended release 24 hr omeprazole 40 mg capsule,delayed 40 mg PO DAILY 05/29/24 09/12/24 History release famotidine 20 mg tablet (Pepcid) 20 mg PO DAILY #14 tabs 06/10/24 09/12/24 Rx promethazine 25 mg tablet 25 mg PO Q6H PRN nausea and 06/10/24 09/12/24 Rx vomiting #14 tabs diazepam 2 mg tablet 2 mg PO TID 07/18/24 09/12/24 History quetiapine 25 mg tablet (Seroquel) 25 mg PO QHS 07/18/24 09/12/24 History New Prescriptions to Start Prescriptions: Allergies Allergy/AdvReac Type Severity Reaction Status Date / Time No Known Allergies Allergy Verified 09/12/24 08:46 Exam Data for Last 24 hours Vital signs and Labs for Last 24 Hours: Temp Pulse Resp BP Pulse Ox O2 Del Method 97.4 F L 92 H 18 120/85 95 Room Air 09/12/24 08:53 09/12/24 08:53 09/12/24 08:53 09/12/24 08:53 09/12/24 08:53 09/12/24 08:53 I & O for Last 24 hours: Intake & Output 09/09/24 09/10/24 09/11/24 09/12/24 23:59 23:59 23:59 23:59 Weight 222 lb *Routine HEENT Exam Head: Present normocephalic Eye: Present EOMI and PERRL ENT: Present mucous membranes moist *Routine Neck Exam Neck: Present supple *Routine Respiratory Exam Respiratory: Present CTA bilaterally *Routine Cardiovascular Exam Cardiovascular: Present RRR *Routine Abdominal Exam Abdominal: Present soft and normoactive bowel sounds; Absent tenderness *Routine Rectal Exam Rectal:: deferred *Routine Genitalia Exam Genitalia:: deferred *Routine Extremities Exam Extremities: Absent cyanosis, clubbing or edema *Routine Skin Exam Skin: Present warm; Absent rash *Routine Neurological Exam Neurological: Present alert and oriented X3 Assessment and Plan *Assessment and plan (1) Epigastric pain: Status: Acute Category: Medical Code(s): R10.13 - Epigastric pain (2) Nausea & vomiting: Status: Acute Category: Medical Code(s): R11.2 - Nausea with vomiting, unspecified (3) Heartburn: Status: Acute Category: Medical Code(s): R12 - Heartburn (4) Bloating: Status: Acute Category: Medical Code(s): R14.0 - Abdominal distension (gaseous) Plan A/P: 1. Epigastric pain with nausea, vomiting, heartburn and bloating is the preprocedural diagnosis. The patient will be anesthetized/sedated using MAC sedation. The patient has been seen and examined. Cardiac and lung assessment prior to the examination is stable. Proceed with planned diagnostic EGD.
[2024-09-12] MEDS: LACTATED RINGERS 1000ML 1,000 ML 50 ML IV (09:21)
[2024-09-12 09:32] LABS: Urine Pregnancy, HCG Qual. Negative (Negative)
--- NOTE | 2024-09-12 10:02 | EXP.ANES.CKL ---
[facility] Disclaimer: The information contained in this section may have been updated after the patient was seen, as this information can be updated by other users. Medical History (Updated 09/12/24 @ 09:19 by Anna Nelson RN) Developmental disability Depression Anxiety Hyperlipidemia Surgical History Hx of umbilical hernia repair History of dental surgery History of cholecystectomy Family History (Updated 09/12/24 @ 09:10 by Anna Nelson RN) Other Heart disease Social History (Updated 09/12/24 @ 09:11 by Anna Nelson RN) Smoking Status: Never smoker alcohol intake: never substance use type: denies use current occupational status: disabled Travel in the last 8 weeks: None housing: house caffeine: Yes Have you lived/traveled outside US in past 30 days?: No Contact w/someone who lives/traveled outside US past 30 days?: No Exposure to someone with infectious disease in past 14 days?: No Do you have a fever (greater than 100.4 F or 38 C)?: No Have you tested positive for COVID-19: No Exposed to someone with COVID-19 in past 14 days?: No Do you have a sore throat?: No Do you have a cough?: No Do you have any weakness?: No Are you experiencing any nausea/vomitting?: No Do you have any diarrhea?: No Are you experiencing any unusual bleeding?: No Do you have any muscle aches/pain?: No Do you have any abdominal pain?: No Are you experiencing loss of taste or smell?: No [facility] Anesthesia Checklist Patient Identification Patient Identification: Arm Band and Family Structural Data Admitted From: Home Planned Operative Procedure/s: EGD Consent for Planned Operative Procedure(s) Verified: Yes Verified Documents: Surgical Consent and History and Physical NPO Status Verified Time NPO: 00:00 Additional verifications Anesthesia Reactions: No Airway Assessment Mallampati Score:: Class II C-Spine Mobility Assessed: Yes TMJ Mobility Assessed: Yes Dentition: Good Dentition Neurological Assessment Level of Consciousness: Awake, Alert and Appropriate Anesthesia Plan Anesthesia Risk discussed: Yes Anesthesia Plan: Verified ASA Class: II Anesthesia Type: MAC
--- NOTE | 2024-09-12 10:02 | [facility].PROCNOTE ---
[facility] Procedure Note Date: 09/12/24 Time: 10:10 Procedure Note:: Upper Endoscopy Procedure Report: Esophagogastroduodenoscopy with cold biopsies Endoscopost: Vinicio Jiang II, MD Referring Physician: DORINDA Pickard Date of Procedure: September 12, 2024 Equipment: Olympus GIF 190 standard upper endoscope Sedation: MAC sedation Indications: Ms. James is a 34-year-old female with nausea, vomiting and dyspepsia. The patient also has had some intermittent diarrhea with loose stools. She reports some heartburn. She does have autism and her mother has given us her history. She did take her daughter to the emergency department a couple of months ago. A CAT scan was performed and showed possible mesenteric adenitis. The patient has been on famotidine, omeprazole and promethazine for the nausea. She has having a lot of bloating, belching and gassiness. She has never had an upper endoscopy. Her mother states that she has had no difficulty swallowing or dysphagia. Procedure: Prior to the procedure, a history and physical exam was performed, and patient's medications and allergies were reviewed. The risks, benefits and alternatives of the sedation and procedure were discussed with the patient. All questions were answered and informed consent was obtained. The patient was brought to the procedure room. Patient identification and proposed procedure were verified by the physician and the nurse. The patient was placed in a left lateral decubitus position and the scope was passed under direct vision. Throughout the procedure, the patient's blood pressure, pulse, and oxygen saturations were monitored continuously. The upper GI endoscopy was accomplished without difficulty. The patient tolerated the procedure well. Findings: The scope was passed directly into the upper esophagus and advanced to the third portion of the duodenum. The post bulbar duodenum, ampulla and duodenal bulb were normal with normal mucosa and conniventes. The scope was withdrawn through a normal duodenal bulb and pylorus into the stomach. There was bile reflux with mild linear reactive gastropathy of the antrum. The body and fundus of the stomach were normal. Upon retroflexion there was no hiatal hernia. Biopsies were taken from the antrum. The scope was then withdrawn into the esophagus. There was no evidence of reflux esophagitis or Rodriguez's. The remainder of the esophageal mucosa was normal. Impression: 1. Bile reflux with mild linear antral gastropathy Plan: I will follow-up the biopsies. I do feel that most of her symptoms of dyspepsia, nausea and vomiting are related to and driven by lower intestinal gas pressure gradients/high gas pressure buildup resulting in backflow of bile and peptic fluid from the duodenum into the stomach (duodenal reflux). This gas production (carbon dioxide, hydrogen, methane, etc.) from the lower intestinal tract is the byproduct of colonic bacterial fermentation. This colonic fermentation occurs when there is more carbohydrate (dietary starches, sugars and high residue plant fiber) substrate that does not get digested (in the middle or small intestine) or occurs when there is colonic fecal buildup and colonic bacterial overgrowth. This indeed leads to bloating and the gas pressure buildup with gas pressure gradients that do drive backflow and dyspepsia. I will discuss this with the family.
== END 2024-09-12 14:00 | disposition home or self-care (01) ==
PROVIDERS: PCP Nurse Practitioner Family; Visit Provider Internal Medicine Gastroenterology
PROC: 0DJ08ZZ Inspection of Upper Intestinal Tract, Via Natural or Artificial Opening Endoscopic (ICD-10-PCS; CPT 43239; principal; 2024-09-12 09:30)
DX: K31.9 Disease of stomach and duodenum, unspecified (principal); R10.13 Epigastric pain; R11.2 Nausea with vomiting, unspecified; R12 Heartburn; R14.0 Abdominal distension (gaseous)
CPT/HCPCS: 43239; 81025; J7120